=== PATIENT | male | born 2000 | race Caucasian/White ===

== ENCOUNTER 2022-05-23 12:32 | Emergency (ER) | payer SELFPAY ==
[2022-05-23] MEDS ORDERED: Lidocaine 1% 5 ML VIAL INJECT ONE (12:39)
[2022-05-23] MEDS ORDERED: Bacitracin Oint 1 GM U/D Packet TOP ONE (12:39)
[2022-05-23] MEDS ORDERED: Lidocaine 1% 20 ML MDV INJECT ONE (13:28)
== END 2022-05-23 13:20 | disposition home or self-care (01) ==
LOC: FB.ED 12:32
DX: S61.442A Puncture wound with foreign body of left hand, initial encounter (principal); W45.0XXA Nail entering through skin, initial encounter
CPT/HCPCS: 99283